=== PATIENT | male | born 1950 | race African-American/Black ===

== ENCOUNTER 2020-12-26 01:34 | Emergency (ER) | payer OTHER ==
[~2020-12-26] VITALS: Ht 175.3 cm; Wt 72.6 kg
[2020-12-26] MEDS ORDERED: fentaNYL CITRATE 100 MCG/2 ML VL IV ONE (03:00)
[2020-12-26 03:13] LABS: Basophils # (auto) 0.1 10 ^3/uL (0-0.2); Basophils % (auto) 0.9 % (0.0-2.0); Eosinophils # (auto) 0.1 10 ^3/uL (0-0.8); Eosinophils % (auto) 1.3 % (0.0-7.0); Lymphocytes # (auto) 1.1 10 ^3/uL (0.4-5.4); Lymphocytes % (auto) 15.1 % (10.0-50.0); Mean Corpuscular Hemoglobin 27.8 pg (28.0-32.0); Mean Corpuscular Hgb Conc. 34.1 g/dL (32.0-36.0); Mean Corpuscular Volume 81.6 fL (80.0-100.0); Monocytes # (auto) 1.1 10 ^3/uL (0-1.3); Monocytes % (auto) 15.8 % (0.0-12.0); Neutrophils # (auto) 4.7 10 ^3/uL (1.6-8.6); Neutrophils % (auto) 66.9 % (37.0-80.0); Nucleated Red Blood Cells % 0.5 %; Platelet Count (auto) 281 10^3/uL (140-450); Red Blood Cells 5.39 10^6/uL (4.5-5.90); Red Cell Distribution Width 14.1 % (11.8-14.3)
[2020-12-26 03:33] LABS: Albumin 3.3 g/dL (3.4-5.0); BUN/Creatinine Ratio 19.8; Potassium 3.5 mmol/L (3.5-5.1)
[2020-12-26] MEDS ORDERED: dilTIAZem 25 MG/5 ML VIAL IV ONE ×2 (03:45→05:45)
[2020-12-26 03:55] LABS: Bilirubin, Total 0.8 mg/dL (0.2-1.0); Total Protein 8.8 g/dL (6.4-8.2)
[2020-12-26] MEDS ORDERED: METOPROLOL TARTRATE 1MG/1ML-5ML VIAL IV ONE ×2 (04:07→04:15)
[2020-12-26] MEDS ORDERED: dilTIAZem 125mg/125ml BAG KIT 125 ML IV ONE (06:15)
[2020-12-26] MEDS ORDERED: LABETALOL HCL 5 MG/ML 4ML SYRINGE IV ONE (09:00)
[2020-12-26] MEDS ORDERED: ASPirin 81 mg TAB PO ONE (10:00)
[2020-12-26] MEDS ORDERED: levoFLOXacin 500MG 100 ML IV ONE (10:00)
[2020-12-26] MEDS ORDERED: GLUCAGON HYDROCHLORIDE (RDNA) 1 MG VIAL IV ONE (10:00)
[2020-12-26] MEDS ORDERED: SODIUM CHLORIDE 0.9% 1,000 ML IV ONE (10:00)
[2020-12-26] MEDS ORDERED: AMIODARONE HCL 150 MG in D5W 5% 100 ML IV ONE (10:00)
[2020-12-26] MEDS ORDERED: AMIODARONE 450mg/250ml AE 250 ML IV SCH ×2 (10:00→16:00)
[2020-12-26 10:29] LABS: Urine Bacteria NONE SEEN /hpf (None Seen); Urine Blood Negative /uL (Negative); Urine Mucus FEW (None Seen); Urine Specific Gravity 1.027 (1.001-1.035); Urine WBC 2 /hpf (0 - 3)
[2020-12-26 10:50] VITALS: BP 111/79
[2020-12-27] MEDS ORDERED: levoFLOXacin 500MG 100 ML IV SCH (10:00)
== END 2020-12-26 11:50 | disposition designated cancer center or children's hospital (05) ==
LOC: EDBD 01:34 → ER 01:34
DX: R10.9 Unspecified abdominal pain (principal); I10 Essential (primary) hypertension; R53.1 Weakness; Z20.822 Contact with and (suspected) exposure to COVID-19
CPT/HCPCS: 36415; 70450; 74176; 80053; 81001; 82962; 83605; 85025; 87426; 93005; 96365; 96366; 96368; 96375; 96376; 99285; C9803; J0282; J3010; J3490; J7060; U0003